=== PATIENT | female | born 1960 | race Caucasian/White ===

== ENCOUNTER → 2021-01-06 14:12 | Outpatient (CLI) | payer BC, SELFPAY ==
[2021-01-06 14:26] LABS: Chloride 108 mmol/L (98-107); Sodium 142 mmol/L (136-145)
[2021-01-06 14:28] LABS: Blood Urea Nitrogen 11 mg/dl (7-17); Estimated Glomerular Filt Rate 86 ml/min (>60); GFR (African American) 104 ML/MIN (>60)
[2021-01-06 14:29] LABS: Alanine Aminotransferase 5 U/L (12-78); Albumin Level 4.3 g/dl (3.5-5.0); Albumin/Globulin Ratio 1.5 (1.1-1.8); Alkaline Phosphatase 108 U/L (38-126); Aspartate Amino Transferase 25 U/L (14-36); Bilirubin,Total 0.4 mg/dl (0.2-1.3); Calcium 9.8 mg/dl (8.4-10.2); Carbon Dioxide 27 mmol/L (22.0-30.0); Cholesterol 245 mg/dl (140-200); Globulin 2.8 g/dL (1.3-3.2); Glucose 79 mg/dl (74-100); Total Protein,Serum 7.1 g/dl (6.3-8.2); Triglycerides 125 mg/dl (30-150); VLDL Cholesterol 25 mg/dL (0-40)
[2021-01-06 14:30] LABS: HDL Cholesterol 49 mg/dl (40-60); Hemoglobin A1C 5.4 % (4.0-6.0)
[2021-01-06 14:31] LABS: Basophils # 0.1 K/mm3 (0-0.2); Eosinophils # 0.2 K/mm3 (0.0-0.4); Eosinophils % 3.1 % (0.1-12.0); Hematocrit 46.1 % (37.0-47.0); Lymphocytes # 1.8 K/mm3 (0.7-4.5); Lymphocytes % 32.6 % (10-50); Mean Corpuscular HGB Conc 32.6 g/dL (31.8-35.4); Mean Corpuscular Hemoglobin 30.7 pg (27.0-31.2); Mean Corpuscular Volume 94.1 fl (81-99); Mean Platelet Volume 10.6 fl (7.4-10.4); Monocytes # 0.2 K/mm3 (0.1-1.0); Monocytes % 4.3 % (1.7-9.3); Neutrophils # 3.2 K/mm3 (1.8-7.8); Platelet Count 275 K/mm3 (142-424); Red Blood Count 4.89 M/mm3 (4.20-5.40); Red Cell Distribution Width 13.8 % (11.5-17.5); White Blood Count 5.4 K/mm3 (4.8-10.8)
[2021-01-06 14:41] LABS: Direct LDL Cholesterol 151.71 mg/dL (100-129)
[2021-01-06 14:47] LABS: T4 (Thyroxine) 8.6 ug/dl (5.53-11.0)
[2021-01-06 15:00] LABS: Thyroid Stimulating Hormone 0.82 uIU/mL (0.465-4.68)
[2021-01-06 15:06] LABS: Erythrocyte Sedimentation Rate 16 mm/hr (0-30)
[2021-01-10 13:08] LABS: Anti-Centromere B Antibodies <0.2 AI (0.0-0.9); Anti-Jo-1 <0.2 AI (0.0-0.9); Anti-Smith Antibody <0.2 AI (0.0-0.9); Antichromatin Antibodies <0.2 AI (0.0-0.9); Antiscleroderma-70 Antibodies 0.5 AI (0.0-0.9); RNP Antibodies <0.2 AI (0.0-0.9); Sjogren's Anti-SS-A <0.2 AI (0.0-0.9); Sjogren's Anti-SS-B <0.2 AI (0.0-0.9)
[2021-01-10 15:25] LABS: Anti-DNA (DS) Ab Qn 1 IU/mL (0-9)
== END ==
PROVIDERS: Visit Provider Family Medicine
DX: E11.9 Type 2 diabetes mellitus without complications (principal); E78.5 Hyperlipidemia, unspecified; R52 Pain, unspecified
CPT/HCPCS: 80053; 80061; 83036; 84436; 84443; 85025; 85651; 86140; 86225; 86235

== ENCOUNTER → 2022-04-15 08:06 | Outpatient (CLI) | payer BC, SELFPAY ==
[2022-04-14 17:42] LABS: Basophils # 0.1 K/mm3 (0-0.2); Basophils % 1.4 % (0.1-2.0); Eosinophils # 0.2 K/mm3 (0.0-0.4); Hematocrit 44.7 % (37.0-47.0); Lymphocytes # 2.3 K/mm3 (0.7-4.5); Lymphocytes % 36.6 % (10-50); Mean Corpuscular HGB Conc 33.6 g/dL (31.8-35.4); Mean Corpuscular Hemoglobin 32.4 pg (27.0-31.2); Mean Corpuscular Volume 96.5 fl (81-99); Mean Platelet Volume 11.9 fl (7.4-10.4); Monocytes # 0.4 K/mm3 (0.1-1.0); Monocytes % 6.7 % (1.7-9.3); Neutrophils # 3.3 K/mm3 (1.8-7.8); Neutrophils % 52.3 % (37.0-80.0); Platelet Count 251 K/mm3 (142-424); Red Blood Count 4.64 M/mm3 (4.20-5.40); Red Cell Distribution Width 14.9 % (11.5-17.5); White Blood Count 6.2 K/mm3 (4.8-10.8)
[2022-04-14 17:51] LABS: Alanine Aminotransferase 9 U/L (12-78); Albumin Level 4.3 g/dl (3.5-5.0); Albumin/Globulin Ratio 1.5 (1.1-1.8); Alkaline Phosphatase 119 U/L (38-126); Aspartate Amino Transferase 30 U/L (14-36); Blood Urea Nitrogen 16 mg/dl (7-17); Calcium 9.7 mg/dl (8.4-10.2); Carbon Dioxide 27 mmol/L (22.0-30.0); Chloride 106 mmol/L (98-107); Chol/HDL Ratio 7.2 (1-3.5); Cholesterol 275 mg/dl (140-200); Estimated Glomerular Filt Rate 85 ml/min (>60); GFR (African American) 103 ML/MIN (>60); Globulin 2.9 g/dL (1.3-3.2); Glucose 107 mg/dl (74-100); HDL Cholesterol 38 mg/dl (40-60); Sodium 140 mmol/L (136-145); Total Protein,Serum 7.2 g/dl (6.3-8.2)
[2022-04-14 17:53] LABS: Bilirubin,Total < 0.1 mg/dl (0.2-1.3); Triglycerides 405 mg/dl (30-150)
[2022-04-14 18:02] LABS: Direct LDL Cholesterol 123.56 mg/dL (100-129)
[2022-04-14 18:07] LABS: 25-OH Vitamin D, Total 37.3 ng/mL (30-100)
[2022-04-14 18:22] LABS: Thyroid Stimulating Hormone 1.28 uIU/mL (0.465-4.68)
[2022-04-14 18:41] LABS: Vitamin B12 252 pg/mL (239-931)
== END ==
PROVIDERS: PCP Family Medicine; Visit Provider Family Medicine
DX: Z00.00 Encounter for general adult medical examination without abnormal findings (principal)
CPT/HCPCS: 80053; 80061; 82306; 82607; 84443; 85025

== ENCOUNTER → 2022-05-03 15:23 | Outpatient (CLI) | payer BC, SELFPAY ==
--- NOTE | 2022-05-03 15:23 | US_ITS ---
FINAL REPORT CLINICAL HISTORY: enlarged thyroid; multiple nodules bilaterally FINDINGS: Sonographic images of the thyroid were obtained. The thyroid overall has a heterogeneous echotexture with multiple small nodules bilaterally. The right lobe of the thyroid measures 3.53 x 1.93 x 1.55 cm. The left lobe of the thyroid measures 4.11 x 1.82 x 1.80. There is a cystic nodule in the mid right thyroid lobe measuring 7 x 8 x 5 mm consistent with TI-RADS category 1. There is a mostly isoechoic nodule in the inferior right thyroid lobe measuring 8 x 7 x 5 mm consistent with TI-RADS category 3. There is a cystic and solid nodule in the left upper thyroid lobe measuring 12 x 5 mm consistent with TI-RADS category 2. There is a solid, isoechoic nodule in the mid left thyroid lobe measuring 18 x 8 x 12 mm consistent with TI-RADS category 3. IMPRESSION: Multiple small nodules bilaterally. Recommend follow-up in 6-12 months. Reviewed, Interpreted and Dictated by Ede Vance III, MD Transcribed by Reema Camacho Authenticated and [facility]
== END ==
PROVIDERS: PCP Family Medicine; Visit Provider Family Medicine
DX: E04.9 Nontoxic goiter, unspecified (principal)
CPT/HCPCS: 76536

== ENCOUNTER → 2022-11-08 13:02 | Outpatient (CLI) | payer BC, SELFPAY ==
--- NOTE | 2022-11-08 13:02 | US_ITS ---
FINAL REPORT TECHNIQUE: Real-time grayscale and color ultrasound of the thyroid was performed. CLINICAL HISTORY: Thyroid nodule, radiologist recomending 6 month COMPARISON: 05/03/2022 FINDINGS: The thyroid gland measures 4.2 cm on the right and 3.9 cm on the left. The isthmus measures 4 mm. Multiple small nodules bilaterally are again noted. The dominant nodule in the mid left thyroid lobe measures 22 x 15 x 9 mm. It is overall hypoechoic, TI-RADS category four. IMPRESSION: Increase in size left mid thyroid nodule. Recommend ultrasound-guided FNA. Other nodules not significantly changed. Reviewed, Interpreted and Dictated by Ede Vance III, MD Transcribed by Niyah Sky Authenticated and . [facility]
== END ==
PROVIDERS: PCP Family Medicine; Visit Provider Family Medicine
DX: E04.1 Nontoxic single thyroid nodule (principal)
CPT/HCPCS: 76536

== ENCOUNTER → 2023-02-13 23:21 | Outpatient (CLI) | payer BC, SELFPAY ==
[2023-02-13 19:22] LABS: Free T4 (Free Thyroxine) 1.12 ng/dl (0.78-2.19)
[2023-02-13 19:40] LABS: Thyroid Stimulating Hormone 0.88 uIU/mL (0.465-4.68)
[2023-02-13 19:50] LABS: Hemoglobin A1C 5.2 % (4.0-6.0)
== END ==
PROVIDERS: PCP Family Medicine; Visit Provider Family Medicine
DX: K21.9 Gastro-esophageal reflux disease without esophagitis (principal); E04.1 Nontoxic single thyroid nodule
CPT/HCPCS: 83036; 84439; 84443